=== PATIENT | female | born 1960 | race African-American/Black ===

== ENCOUNTER 2019-06-05 18:13 | Emergency (ER) | payer MEDICAID, MEDICARE ==
[~2019-06-05] VITALS: Ht 157.5 cm; Wt 69.0 kg
[2019-06-05 18:54] VITALS: BP 129/76
[2019-06-05] MEDS ORDERED: HYDROCODONE/ACETAMINOPHEN 5/325MG TABLET PO ONE (19:00)
[2019-06-05] MEDS ORDERED: AMOXICILLIN/POTASSIUM CLAVULANATE 875/125MG TAB PO ONE (19:00)
== END 2019-06-05 19:06 | disposition home or self-care (01) ==
LOC: ER 18:13
DX: K02.9 Dental caries, unspecified (principal)
CPT/HCPCS: 99283

== ENCOUNTER 2020-01-03 00:07 | Emergency (ER) | payer MEDICARE, MEDICAID ==
[~2020-01-03] VITALS: Ht 154.9 cm; Wt 69.0 kg
[2020-01-03 02:42] LABS: BASOPHILS % 0.6 % (0.0-2.0); EOSINOPHILS % 2.1 % (0.0-5.0); HEMATOCRIT. 42.7 % (36.0-48.0); HEMOGLOBIN. 14.1 g/dL (12.0-16.0); LYMPHOCYTES % 25.6 % (20.0-50.0); MEAN CORPUSCULAR HEMOGLOBIN 27.3 pg (28.0-32.0); MEAN CORPUSCULAR VOLUME 82.8 fL (81.0-99.0); MEAN PLATELET VOLUME 9.1 fl (7.4-10.4); NEUTROPHILS % 66.7 % (40.0-76.0); PLATELET 279 x1000/uL (130-400); RED BLOOD CELL COUNT 5.16 mill/uL (4.2-5.4); RED CELL DISTRIBUTION WIDTH 14.7 % (11.6-14.6)
[2020-01-03 03:12] LABS: INR 0.9; PROTHROMBIN TIME 9.8 sec (9.6-11.0)
[2020-01-03] MEDS ORDERED: KETOROLAC 15MG/ML VIAL IV ONE (03:45)
[2020-01-03 05:33] LABS: CHLORIDE 111 mEq/L (98-107)
[2020-01-03 06:03] VITALS: BP 124/74
== END 2020-01-03 06:10 | disposition short-term general hospital (02) ==
LOC: ER 00:07
DX: K62.3 Rectal prolapse (principal)
CPT/HCPCS: 36415; 71045; 80053; 85025; 85610; 85730; 86850; 86900; 86901; 96374; 99285; J1885

== ENCOUNTER 2022-04-20 15:49 | Emergency (ER) | payer MEDICARE, MEDICAID ==
[~2022-04-20] VITALS: Ht 154.9 cm; Wt 65.1 kg
[2022-04-20 16:06] VITALS: BP 128/86
== END 2022-04-20 20:53 | disposition left against medical advice (07) ==
LOC: ER 15:49
DX: Z53.21 Procedure and treatment not carried out due to patient leaving prior to being seen by health care provider (principal)

== ENCOUNTER 2023-07-04 19:59 | Emergency (ER) | payer MEDICARE, MEDICAID ==
[~2023-07-04] VITALS: Ht 162.6 cm; Wt 63.4 kg
[2023-07-04 20:17] VITALS: BP 151/87; PULSE 80; RESP 16; TEMP 98.4; O2SAT 99
[2023-07-04] MEDS ORDERED: CYCL10TA21 MT (22:07)
== END 2023-07-04 23:19 | disposition home or self-care (01) ==
LOC: ER 19:59
DX: S00.93XA Contusion of unspecified part of head, initial encounter (principal); S20.211A Contusion of right front wall of thorax, initial encounter; S16.1XXA Strain of muscle, fascia and tendon at neck level, initial encounter; S39.012A Strain of muscle, fascia and tendon of lower back, initial encounter; V49.9XXA Car occupant (driver) (passenger) injured in unspecified traffic accident, initial encounter; Y93.9 Activity, unspecified; Y92.89 Other specified places as the place of occurrence of the external cause; Y99.8 Other external cause status
CPT/HCPCS: 71101; 99283

== ENCOUNTER 2024-03-28 21:21 | Emergency (ER) | payer MEDICARE, MEDICAID ==
[~2024-03-28] VITALS: Ht 144.8 cm; Wt 58.9 kg
[~2024-03-28 21:21] MED LIST: CYCL10TA21 MT
[2024-03-28 21:27] VITALS: O2SAT 100
[2024-03-28 21:28] VITALS: BP 132/91; PULSE 66; RESP 18; TEMP 98.5; O2SAT 100
== END 2024-03-29 01:10 | disposition left against medical advice (07) ==
LOC: ER 21:21
DX: R51.9 Headache, unspecified (principal); M54.2 Cervicalgia; M25.511 Pain in right shoulder; M25.512 Pain in left shoulder; V49.49XA Driver injured in collision with other motor vehicles in traffic accident, initial encounter; Y93.89 Activity, other specified; Y92.89 Other specified places as the place of occurrence of the external cause; Y99.8 Other external cause status
CPT/HCPCS: 73030; 99283

== ENCOUNTER 2024-06-08 14:41 | Emergency (ER) | payer BC, MEDICAID ==
[~2024-06-08] VITALS: Ht 144.8 cm; Wt 59.0 kg
[2024-06-08 15:01] VITALS: O2SAT 98
[2024-06-08] MEDS ORDERED: CLIN-116 MT (15:46)
[2024-06-08] MEDS ORDERED: IBUP-2028 MT (15:46)
[2024-06-08] MEDS ORDERED: AMOX1TAB16 MT (15:48)
[2024-06-08 16:32] VITALS: BP 144/85; PULSE 88; RESP 18; TEMP 36.66960; O2SAT 98
== END 2024-06-08 16:37 | disposition home or self-care (01) ==
LOC: ER 15:02
DX: K08.89 Other specified disorders of teeth and supporting structures (principal)
CPT/HCPCS: 99283

== ENCOUNTER 2024-08-28 22:38 | Emergency (ER) | payer MEDICARE, MEDICAID ==
[~2024-08-28] VITALS: Ht 149.9 cm; Wt 62.2 kg
[~2024-08-28 22:38] MED LIST changes: +AMOX1TAB16 MT; +IBUP-2028 MT
[2024-08-28 22:39] VITALS: O2SAT 99
[2024-08-28 23:11] VITALS: BP 162/106; PULSE 94; RESP 20; TEMP 36.7; O2SAT 100
[2024-08-29] MEDS ORDERED: AMOX-494 MT (01:48)
[2024-08-29] MEDS ORDERED: IBUP-2029 MT (01:48)
== END 2024-08-29 02:03 | disposition home or self-care (01) ==
LOC: ER 22:38
DX: K08.89 Other specified disorders of teeth and supporting structures (principal); K21.9 Gastro-esophageal reflux disease without esophagitis
CPT/HCPCS: 99283